=== PATIENT | male | born 1975 | race Caucasian/White ===

== ENCOUNTER 2016-11-25 07:22 | Emergency (ER) ==
[2016-11-25 07:29] VITALS: BP 112/73; TEMP 97; BMI 21.1
--- NOTE | 2016-11-25 07:39 | ED.PDOC ---
General ED Provider: Dr. HARDEEP SEARS Chief Complaint: Earache Stated Complaint: Got water in ears Wednesday (2 Days [employer]); now earache L ear Time Seen by Physician: 07:30 Mode of Arrival: Walk-In Information Source: Patient Exam Limitations: No limitations Primary Care Provider: [facility] Nursing and Triage Documentation Reviewed and Agree: Yes Review of Systems - Review Of Systems Constitutional: Reports: No symptoms Ears, Nose, Mouth, Throat: Reports: Ear pain (Left). Denies: Nose discharge, Mouth pain, Mouth swelling, Throat pain Respiratory: Reports: No symptoms. Denies: Cough, Orthopnea, Short of air Skin: Reports: No symptoms All Other Systems: Reviewed and Negative Past Medical History - Past Medical History Previously Healthy: Yes Endocrine: Reports: None Cardiovascular: Reports: None Respiratory: Reports: None Hematological: Reports: None Gastrointestinal: Reports: None Genitourinary: Reports: None Neuro/Psych: Reports: None Musculoskeletal: Reports: None Cancer: Reports: None - Surgical History General Surgical History: Reports: Other (Facial surgery, remote) - Family History Family History: Reports: None - Social History Smoking Status: Current every day smoker Hx Substance Use: No Alcohol Screening: Occasionally Lives: With family - Immunizations Tetanus Shot up to Date: No Physical Exam - Physical Exam Appearance: Well-appearing Eyes: CHRISTAL, EOMI, Conjunctiva clear ENT: TMs Occluded (Bilateral cerumen; L slight erythema ext canal) Neck: Supple Respiratory: Airway patent, Respirations nonlabored Skin: Warm, Dry, Normal color Neurological: Sensation intact, Motor intact Psychiatric: Affect appropriate, Mood appropriate Critical Care Note - Critical Care Note Total Time (mins): 7 Course - Course Vital Signs: Temp Pulse Resp BP Pulse Ox 11/25/16 07:23 97.0 F L 82 16 112/73 97 Departure - Departure Time of Disposition: 07:43 Disposition: HOME SELF-CARE Discharge Problem: Otitis Qualifiers: Laterality: left Qualifier Code: (H66.92) Otitis media, unspecified, left ear Instructions: Otitis Media (ED) Condition: Good Pt referred to PMD for follow-up: Yes (call for appointment) Additional Instructions: Use antibiotics as prescribed; after three days begin using over the counter Debrox or any of the wax removal preparations. May need to follow up with primary care if not better in one week to ten days. Prescriptions: Amoxicillin [Amoxil] 500 mg PO Q8HR #21 capsule Allergies/Adverse Reactions: Allergies nickel Adverse Reaction (Verified 11/25/16 07:27) Home Medications: Ambulatory Orders Amoxicillin [Amoxil] 500 mg PO Q8HR #21 capsule 11/25/16 Disposition Discussed With: Patient
== END 2016-11-25 07:49 | disposition home or self-care (01) ==
LOC: ED 07:22
DX: H66.92 Otitis media, unspecified, left ear (principal)
CPT/HCPCS: 99282